=== PATIENT | male | born 1950 | race Caucasian/White ===

== ENCOUNTER → 2017-02-19 | Outpatient (CLI) | payer OTHER ==
[~2017-02-19] MED LIST: ASPIRIN325 PO; FLEXERIL; LISINOPRIL40 MG PO; LOVENOX SQ; OXYIR5 MG PO; VICODIN 5-5001 EACH PO
== END | disposition home or self-care (01) ==
LOC: LITH 09:32
DX: N20.0 Calculus of kidney (principal)